=== PATIENT | female | born 1955 | race Hispanic/Latino ===

== ENCOUNTER 2019-11-11 10:04 | Outpatient (CLI) | payer BC ==
--- NOTE | 2019-11-11 11:31 | RAD ---
EXAM: Two views chest PROVIDED CLINICAL HISTORY: Chest pain COMPARISON: 06/19/2012 FINDINGS: Cardiac and mediastinal silhouette appears within normal limits. Lungs appear free of significant opa city. No pleural fluid or pneumothorax apparent. IMPRESSION: No evidence for an acute cardiopulmonary process.
--- NOTE | 2019-11-11 11:33 | RAD ---
LUMBAR SPINE 2 VIEWS: Date: 11/11/2019 INDICATION: Acute low back pain. COMPARISON: None. FINDINGS: There are five lumbar-type vertebrae. There are laminectomy changes at S1. There is mild Grade I ante rolisthesis of L4 on L5. There is mild multilevel disc degenerative facet osteoarthritic change. No a cute fracture is evident. IMPRESSION: 1. Mild to moderate spondylosis of the lumbar spine. 2. Mild Grade I anterolisthesis of L4 on L5. POS: [facility]
== END 2019-11-11 10:05 | disposition home or self-care (01) ==
LOC: BICRAD 10:04
PROVIDERS: ATTEND Family Medicine
DX: M54.5 Low back pain (principal); R07.89 Other chest pain; M47.816 Spondylosis without myelopathy or radiculopathy, lumbar region; M43.16 Spondylolisthesis, lumbar region
CPT/HCPCS: 36415; 71046; 72100; 80053; 84443; 85025